=== PATIENT | male | born 1980 | race Caucasian/White ===

== ENCOUNTER 2019-01-26 16:47 | Emergency (ER) | payer OTHER, SELFPAY ==
[2019-01-26 16:50] VITALS: BP 117/71; PULSE 73; RESP 14; TEMP 36.8; O2SAT 97
--- NOTE | 2019-01-26 17:08 | W.ED.GENAD ---
Discharge Plan Disposition Patient Disposition: HOME Condition: Improving Discharge Details Chief Complaint: Laceration Clinical Impression: Laceration of hand, left Primary Care Provider: [place], [place] ED Provider: Rod Castellanos Home Meds and New Rx's Prescriptions: No Action No Known Home Meds RF: 0 Discharge Instructions Instructions: Laceration (ED) Additional Instructions: Return for suture removal in 7 to 8 days time. Return sooner if you develop fever, redness, discharge from the wound. Daily soap and water cleanse, pat dry, replace with Band-Aid. Medical Decision Making 38-year-old male who cut his left long finger with a pocket knife. Bleeding controlled with pressure. Tetanus he states is up-to-date within the past 4 years. His vital signs are normal and his exam is otherwise reassuring. Wound anesthetized, irrigated, examined in a bloodless field without evidence of foreign body nor injury to deep structures. Repaired with interrupted suture. He is stable for discharge with return for removal in 7 to 10 days HPI General Mode of arrival: ambulatory. Date/Time Provider Initiated Documentation: 01/26/19 16:49. Limitations to Documentation: no limitations. Information obtained by: patient. History of Present Illness 38 year old M presents to the emergency department with the chief complaint of Laceration left hand, described as mild, Quality is described as dull, and is localized to the left and upper extremity. Patient reports no radiation. Patient started experiencing this hour(s) and it has been constant. No exacerbating factors reported . Patient notes no other symptoms.. Patient did receive the following treatments prior to arrival, none Related Data Home Medications Medication Instructions Recorded Confirmed Unknown [No Known Home Meds] 01/26/19 01/26/19 Allergies Allergy/AdvReac Type Severity Reaction Status Date / Time grass pollen-perennial rye, AdvReac Unverified 01/26/19 16:54 standar General Stated Complaint: Laceration DIMITRI: 3 Review of Systems Review of Systems 4 systems reviewed and otherwise - [facility] Social History Smoking/Tobacco Use Status: Current every day Tobacco Type: cigars Alcohol Intake: current Alcohol Intake frequency: a few times a week Alcohol type: hard liquor Drug use: Never Substance use type: does not use Do you feel safe at home: Yes Do you feel safe in your relationship?: Yes Exam Narrative Exam Narrative: GEN: awake, alert, oriented 3. Pleasant, well groomed, interactive. HEAD: Normocephalic, atraumatic ENT: Mucous membranes moist, oropharynx unremarkable, External ear exam unremarkable EYES: PERRL, EOMI EXT: Full ROM, no edema, no rash. The left long finger on the dorsal surface has a shallow 2 cm laceration, no deep structures exposed. Full range of motion. Sensation intact including distal two-point discrimination of 1 cm Neuro: Grossly normal neurologic exam, conversant, interactive. Psych: Speech fluent, thoughts congruent, affect normal Course Vital Signs Temperature 36.8 C 01/26/19 16:50 Pulse 73 01/26/19 16:50 Respiratory Rate 14 01/26/19 16:50 Blood Pressure 117/71 01/26/19 16:50 Pulse Oximetry 97 01/26/19 16:50 Temperature 36.8 C 01/26/19 16:50 Temperature Source Temporal Artery Scan 01/26/19 16:50 Pulse 73 01/26/19 16:50 Respiratory Rate 14 01/26/19 16:50 Respiratory Effort Non-Labored 01/26/19 16:52 Blood Pressure 117/71 01/26/19 16:50 Blood Pressure Position Sitting 01/26/19 16:50 Pulse Oximetry 97 01/26/19 16:50 Oxygen Delivery Method Room Air 01/26/19 16:50 Oxygen Flow Rate 0 01/26/19 16:50 Pain Level 1 01/26/19 16:50 Procedures Laceration Laceration 1: Site: hand Side (If applicable): left Size (cm): 2 Description: linear Depth: simple, single layer Local Anesthetic: Lidocaine 1% Amount of anesthesia used (mL): 1 Pre-repair: wound explored Skin layer closed with: nylon Size (cm): 4-0 Number of sutures: 4
--- NOTE | 2019-01-26 17:11 | ED.GENADUL_ITS ---
Discharge Plan Disposition Patient Disposition: HOME Condition: Improving Discharge Details Chief Complaint: Laceration Clinical Impression: Laceration of hand, left Primary Care Provider: [place], [place] ED Provider: Rod Castellanos Home Meds and New Rx's Prescriptions: No Action No Known Home Meds RF: 0 Discharge Instructions Instructions: Laceration (ED) Additional Instructions: Return for suture removal in 7 to 8 days time. Return sooner if you develop fever, redness, discharge from the wound. Daily soap and water cleanse, pat dry, replace with Band-Aid. Medical Decision Making 38-year-old male who cut his left long finger with a pocket knife. Bleeding controlled with pressure. Tetanus he states is up-to-date within the past 4 years. His vital signs are normal and his exam is otherwise reassuring. Wound anesthetized, irrigated, examined in a bloodless field without evidence of foreign body nor injury to deep structures. Repaired with interrupted suture. He is stable for discharge with return for removal in 7 to 10 days HPI General Mode of arrival: ambulatory . Date/Time Provider Initiated Documentation: 01/26/19 16:49 . Limitations to Documentation: no limitations . Information obtained by: patient . History of Present Illness 38 year old M presents to the emergency department with the chief complaint of Laceration left hand, described as mild, Quality is described as dull, and is localized to the left and upper extremity. Patient reports no radiation. Patient started experiencing this hour(s) and it has been constant. No exacerbating factors reported . Patient notes no other symptoms.. Patient did receive the following treatments prior to arrival, none Related Data Home Medications Medication Instructions Recorded Confirmed Unknown [No Known Home Meds] 01/26/19 01/26/19 Allergies Allergy/AdvReac Type Severity Reaction Status Date / Time grass pollen-perennial rye, AdvReac Unverified 01/26/19 16:54 standar General Stated Complaint: Laceration DIMITRI: 3 Review of Systems Review of Systems 4 systems reviewed and otherwise - [facility] Social History Smoking/Tobacco Use Status: Current every day Tobacco Type: cigars Alcohol Intake: current Alcohol Intake frequency: a few times a week Alcohol type: hard liquor Drug use: Never Substance use type: does not use Do you feel safe at home: Yes Do you feel safe in your relationship?: Yes Exam Narrative Exam Narrative: GEN: awake, alert, oriented 3. Pleasant, well groomed, interactive. HEAD: Normocephalic, atraumatic ENT: Mucous membranes moist, oropharynx unremarkable, External ear exam unremarkable EYES: PERRL, EOMI EXT: Full ROM, no edema, no rash. The left long finger on the dorsal surface has a shallow 2 cm laceration, no deep structures exposed. Full range of motion. Sensation intact including distal two-point discrimination of 1 cm Neuro: Grossly normal neurologic exam, conversant, interactive. Psych: Speech fluent, thoughts congruent, affect normal Course Vital Signs Temperature 36.8 C 01/26/19 16:50 Pulse 73 01/26/19 16:50 Respiratory Rate 14 01/26/19 16:50 Blood Pressure 117/71 01/26/19 16:50 Pulse Oximetry 97 01/26/19 16:50 Temperature 36.8 C 01/26/19 16:50 Temperature Source Temporal Artery Scan 01/26/19 16:50 Pulse 73 01/26/19 16:50 Respiratory Rate 14 01/26/19 16:50 Respiratory Effort Non-Labored 01/26/19 16:52 Blood Pressure 117/71 01/26/19 16:50 Blood Pressure Position Sitting 01/26/19 16:50 Pulse Oximetry 97 01/26/19 16:50 Oxygen Delivery Method Room Air 01/26/19 16:50 Oxygen Flow Rate 0 01/26/19 16:50 Pain Level 1 01/26/19 16:50 Procedures Laceration Laceration 1: Site: hand Side (If applicable): left Size (cm): 2 Description: linear Depth: simple, single layer Local Anesthetic: Lidocaine 1% Amount of anesthesia used (mL): 1 Pre-repair: wound explored Skin layer closed with: nylon Size (cm): 4-0 Number of sutures: 4
== END 2019-01-26 17:13 | disposition home or self-care (01) ==
LOC: ER 17:43
PROVIDERS: Emergency Provider Emergency Medicine
DX: S61.412A Laceration without foreign body of left hand, initial encounter (principal); W26.0XXA Contact with knife, initial encounter
CPT/HCPCS: 12001

== ENCOUNTER 2019-02-03 17:35 | Emergency (ER) | payer OTHER, SELFPAY ==
--- NOTE | 2019-02-03 17:41 | W.ED.GENAD ---
Discharge Plan Disposition Patient Disposition: HOME Condition: Stable Discharge Details Clinical Impression: Encounter for removal of sutures Primary Care Provider: [place] Provider: Dre Nava Home Meds and New Rx's Prescriptions: No Action No Known Home Meds RF: 0 Discharge Instructions Instructions: Stitches Removal (ED) Medical Decision Making 38 yo male comes in for suture removal. Had 4 stitches placed 8 days ago on his left posterior ring finger. One stitch fell out, 3 remain. Would is well healed with no erythema, d/c or signs of infection and full rom of the finger and intact sensation. Sutures removed without incident, will d/c home, return precautions for infection s/s given Differential Diagnosis suture removal, lac HPI General Mode of arrival: ambulatory. Date/Time Provider Initiated Documentation: 02/03/19 17:36. Limitations to Documentation: no limitations. Information obtained by: patient. History of Present Illness 38 year old M presents to the emergency department with the chief complaint of left middle finger suture removal, and is localized to the left and upper extremity. Patient reports no radiation. No relieving factors improve symptom(s), No exacerbating factors reported . Patient notes no other symptoms.. Related Data Home Medications Medication Instructions Recorded Confirmed Unknown [No Known Home Meds] 01/26/19 01/26/19 Allergies Allergy/AdvReac Type Severity Reaction Status Date / Time grass pollen-perennial rye, AdvReac Unverified 01/26/19 16:54 standar General DIMITRI: 3 Review of Systems Review of Systems All systems reviewed & are unremarkable except as noted in HPI and below Constitutional Denies weakness Cardiovascular Denies chest pain and Denies dyspnea Respiratory Denies dyspnea Gastrointestinal Denies abdominal pain, Denies nausea and Denies vomiting Neurologic Denies weakness [facility] Social History Smoking/Tobacco Use Status: Current every day Tobacco Type: cigars Alcohol Intake: current Alcohol Intake frequency: a few times a week Alcohol type: hard liquor Drug use: Never Substance use type: does not use Do you feel safe at home: Yes Do you feel safe in your relationship?: Yes Exam Const General: no acute distress Orientation: alert HENMT Head: normal to inspection Ears: external ears normal General nose exam: external nose normal Mouth: moist mucous membranes Eyes General: appearance normal, both eyes and all related structures Neck Neck: normal visual inspection Resp Effort & Inspection: normal respiratory effort and able to speak in complete sentences Cardio Rate: regular rate Skin General skin exam: no rashes or lesions noted Neuro General: alert and oriented x3 Extrem General: full ROM and normal capillary refill Psych Mental Status: mental status grossly normal
[2019-02-03 17:42] VITALS: BP 107/65; PULSE 74; RESP 16; TEMP 36.9
--- NOTE | 2019-02-03 17:45 | ED.GENADUL_ITS ---
Discharge Plan Disposition Patient Disposition: HOME Condition: Stable Discharge Details Clinical Impression: Encounter for removal of sutures Primary Care Provider: [place] Provider: Dre Nava Home Meds and New Rx's Prescriptions: No Action No Known Home Meds RF: 0 Discharge Instructions Instructions: Stitches Removal (ED) Medical Decision Making 38 yo male comes in for suture removal. Had 4 stitches placed 8 days ago on his left posterior ring finger. One stitch fell out, 3 remain. Would is well healed with no erythema, d/c or signs of infection and full rom of the finger and intact sensation. Sutures removed without incident, will d/c home, return precautions for infection s/s given Differential Diagnosis suture removal, lac HPI General Mode of arrival: ambulatory . Date/Time Provider Initiated Documentation: 02/03/19 17:36 . Limitations to Documentation: no limitations . Information obtained by: patient . History of Present Illness 38 year old M presents to the emergency department with the chief complaint of left middle finger suture removal, and is localized to the left and upper extremity. Patient reports no radiation. No relieving factors improve symptom(s), No exacerbating factors reported . Patient notes no other symptoms.. Related Data Home Medications Medication Instructions Recorded Confirmed Unknown [No Known Home Meds] 01/26/19 01/26/19 Allergies Allergy/AdvReac Type Severity Reaction Status Date / Time grass pollen-perennial rye, AdvReac Unverified 01/26/19 16:54 standar General DIMITRI: 3 Review of Systems Review of Systems All systems reviewed & are unremarkable except as noted in HPI and below Constitutional Denies weakness Cardiovascular Denies chest pain and Denies dyspnea Respiratory Denies dyspnea Gastrointestinal Denies abdominal pain, Denies nausea and Denies vomiting Neurologic Denies weakness [facility] Social History Smoking/Tobacco Use Status: Current every day Tobacco Type: cigars Alcohol Intake: current Alcohol Intake frequency: a few times a week Alcohol type: hard liquor Drug use: Never Substance use type: does not use Do you feel safe at home: Yes Do you feel safe in your relationship?: Yes Exam Const General: no acute distress Orientation: alert HENMT Head: normal to inspection Ears: external ears normal General nose exam: external nose normal Mouth: moist mucous membranes Eyes General: appearance normal, both eyes and all related structures Neck Neck: normal visual inspection Resp Effort & Inspection: normal respiratory effort and able to speak in complete sentences Cardio Rate: regular rate Skin General skin exam: no rashes or lesions noted Neuro General: alert and oriented x3 Extrem General: full ROM and normal capillary refill Psych Mental Status: mental status grossly normal
== END 2019-02-03 17:48 | disposition home or self-care (01) ==
LOC: ER 17:43
PROVIDERS: Emergency Provider Emergency Medicine
DX: S61.412D Laceration without foreign body of left hand, subsequent encounter (principal); X58.XXXD Exposure to other specified factors, subsequent encounter; Z48.02 Encounter for removal of sutures